=== PATIENT | male | born 1970 | race American Indian/Alaskan Native ===

== ENCOUNTER 2017-08-11 15:14 | Emergency (ER) | payer MEDICAID, OTHER ==
[2017-08-11 15:30] VITALS: BP 108/72
--- NOTE | 2017-08-11 16:22 | EDM.PDOC ---
ED HPI GENERAL MEDICAL PROBLEM - General Chief Complaint: Genitourinary Problem Stated Complaint: LT TESTICLE SWOLLEN Time Seen by Provider: 08/11/17 16:14 Source of Information: Reports: Patient, Family History Limitations: Reports: No Limitations - History of Present Illness INITIAL COMMENTS - FREE TEXT/NARRATIVE: pt arrived with a very swollen left testicle. This started about 4 days ago. he did not have a injury. Onset: Today Duration: Day(s): Location: Reports: Other ( left teticle ) Associated Symptoms: Reports: No Other Symptoms, Other (pt has been very uncomforatable with the swollen testicle) testicle Pain Score (Numeric/FACES): 7 - Related Data Allergies Allergy/AdvReac Type Severity Reaction Status Date / Time No Known Allergies Allergy Verified 08/11/17 15:39 Home Meds: Home Meds Gabapentin [Neurontin] 300 mg PO TID 05/19/14 [History] Insulin Aspart [NovoLOG] 15 units SQ TIDAC 05/19/14 [History] Simvastatin [Zocor] 20 mg PO BEDTIME 05/19/14 [History] metFORMIN HCl [Metformin HCl] 1,000 mg PO BID 05/19/14 [History] Insulin Detemir [Levemir Flextouch] 50 unit SQ BEDTIME 05/20/14 [History] Acetaminophen/HYDROcodone [[place] 325-5 MG] 1 tab PO Q6H PRN 08/11/17 [History] Aspirin [Adult Aspirin] 81 mg PO DAILY 08/11/17 [History] Cetirizine [ZyrTEC] 10 mg PO DAILY 08/11/17 [History] Lisinopril 20 mg PO DAILY 08/11/17 [History] Saxagliptin HCl [Onglyza] 2.5 mg PO DAILY 08/11/17 [History] Sertraline HCl [Zoloft] 100 mg PO BEDTIME 08/11/17 [History] cloNIDine HCl [Catapres] 0.1 mg PO BID 08/11/17 [History] glipiZIDE [Glucotrol XL] 10 mg PO BID 08/11/17 [History] Past Medical History Cardiovascular History: Reports: High Cholesterol, Hypertension Respiratory History: Reports: Pneumonia, Recurrent Neurological History: Reports: Neuropathy, Diabetic Psychiatric History: Reports: Anxiety, Depression Endocrine/Metabolic History: Reports: Diabetes, Type II - Infectious Disease History Infectious Disease History: Reports: Chicken Pox, Shingles Social & Family History - Tobacco Use Smoking Status *Q: Current Every Day Smoker Years of Tobacco use: 30 Packs/Tins Daily: 1 - Caffeine Use Caffeine Use: Reports: Coffee - Recreational Drug Use Recreational Drug Use: No ED ROS GENERAL - Review of Systems Review Of Systems: See Below Constitutional: Reports: No Symptoms HEENT: Reports: No Symptoms Respiratory: Reports: No Symptoms Cardiovascular: Reports: No Symptoms Endocrine: Reports: No Symptoms GI/Abdominal: Reports: Other ( pt is voiding ok. ) : Reports: No Symptoms. Denies: Other ( swollen left testicle.) Musculoskeletal: Reports: No Symptoms Skin: Reports: No Symptoms Neurological: Reports: No Symptoms ED EXAM, GI/ABD - Physical Exam Exam: See Below Text/Narrative:: pt arrived with a swollen left testicle. This is very uncomfortable. He was seen at [facility] last pm and was given a rocephen shot and sent to the Er but he did not come. General Appearance: Alert, Anxious, Moderate Distress Ears: Normal TMs Nose: Normal Inspection Throat/Mouth: Normal Inspection Head: Atraumatic Neck: Normal Inspection Respiratory/Chest: No Respiratory Distress Cardiovascular: Regular Rate, Rhythm GI/Abdominal Exam: Soft, Non-Tender (Male) Exam: Testicular Tenderness (L), Other (pt has a markedly swollen left tesicle. ) Extremities: Normal Inspection Neurological: Alert, Oriented, Normal Cognition Course - Vital Signs Last Recorded V/S: Last Vital Signs Temp 37.4 C 08/11/17 15:38 Pulse 100 08/11/17 15:38 Resp 16 08/11/17 15:38 BP 108/72 08/11/17 15:38 Pulse Ox 95 08/11/17 15:38 - Orders/Labs/Meds Labs: Laboratory Tests 08/11/17 08/11/17 08/11/17 Range/Units 16:14 16:22 16:22 WBC 24.9 H (4.5-11.0) K/uL RBC 4.85 (4.30-5.90) M/uL Hgb 14.2 (12.0-15.0) g/dL Hct 41.7 (40.0-54.0) % MCV 86 (80-98) fL MCH 29 (27-31) pg MCHC 34 (32-36) % Plt Count 330 (150-400) K/uL Add Manual Diff Yes Neutrophils % (Manual) 84 H (36-66) % Band Neutrophils % 1 L (5-11) % Lymphocytes % (Manual) 7 L (24-44) % Monocytes % (Manual) 7 H (2-6) % Eosinophils % (Manual) 1 L (2-4) % Sodium 134 L (140-148) mmol/L Potassium 4.0 (3.6-5.2) mmol/L Chloride 101 (100-108) mmol/L Carbon Dioxide 22 (21-32) mmol/L Anion Gap 15.0 H (5.0-14.0) mmol/L BUN 17 D (7-18) mg/dL Creatinine 1.0 D (0.8-1.3) mg/dL Est Cr Clr Drug Dosing 107.97 mL/min Estimated GFR (MDRD) > 60 (>60) Glucose 172 H (74-106) mg/dL Calcium 8.6 (8.5-10.1) mg/dL Total Bilirubin 0.5 (0.2-1.0) mg/dL AST 22 (15-37) U/L ALT 35 (12-78) U/L Alkaline Phosphatase 112 (46-116) U/L Total Protein 8.2 (6.4-8.2) g/dL Albumin 2.9 L (3.4-5.0) g/dL Globulin 5.3 H (2.3-3.5) g/dL Albumin/Globulin Ratio 0.6 L (1.2-2.2) Urine Color [place] Urine Appearance Slightly cloudy Urine pH 5.0 (4.5-8.0) Ur Specific [place] 1.020 (1.008-1.030) Urine Protein 30 H (NEGATIVE) mg/dL Urine Glucose (UA) 100 H (NEGATIVE) mg/dL Urine Ketones Negative (NEGATIVE) mg/dL Urine Occult Blood Negative (NEGATIVE) Urine Nitrite Negative (NEGAITVE) Urine Bilirubin Small (NEGATIVE) Urine Urobilinogen 4 (NORMAL) mg/dL Ur Leukocyte Esterase Small (NEGATIVE) Urine RBC Not seen (0-5) Urine WBC 10-20 H (0-5) Ur Epithelial Cells Few Amorphous Sediment Not seen Urine Bacteria Few Urine Mucus Moderate Meds: Medications Discontinued Medications Generic Name Dose Route Start Last Admin Trade Name Freq PRN Reason Stop Dose Admin Sodium Chloride 1,000 mls @ 999 mls/hr 08/11/17 18:00 08/11/17 18:39 Normal Saline IV 999 mls/hr ASDIRECTED TONYA Administration Levofloxacin/Dextrose 500 mg/ 100 mls @ 100 mls/hr 08/11/17 18:25 08/11/17 18 :38 Premix IV 08/11/17 19:24 100 mls/hr ONETIME ONE Administration Ketorolac Tromethamine 30 mg 08/11/17 17:47 08/11/17 18:39 Toradol IVPUSH 08/11/17 17:48 30 mg ONETIME ONE Administration - Re-Assessments/Exams Free Text/Narrative Re-Assessment/Exam: 08/14/17 07:05 us was done on the scrotum and he had good circulation to the testicle. There is some edema. Departure - Departure Time of Disposition: 18:27 Disposition: Home, Self-Care 01 Clinical Impression: Orchitis and epididymitis - Discharge Information Instructions: Scrotal Swelling, Epididymitis Referrals: PCP,None [Primary Care Provider] - Forms: ED Department Discharge Care Plan Goals: scrotal support, tub soak, continue hydrocodone levoquin 500mg daily, rtc if not improving.
[2017-08-11] MEDS ORDERED: Ketorolac 30 MG/ML SDV IVPUSH ONE (17:47)
[2017-08-11] MEDS ORDERED: Sodium Chloride 0.9% 1,000 ML IV SCH (18:00)
[2017-08-11] MEDS ORDERED: Levofloxacin/Dextrose 5%-Water 500 MG in Premix Bag 1 BAG IV ONE (18:25)
== END 2017-08-11 20:06 | disposition home or self-care (01) ==
LOC: JP.ED 15:14
DX: N45.3 Epididymo-orchitis (principal); I10 Essential (primary) hypertension; E78.00 Pure hypercholesterolemia, unspecified; E11.40 Type 2 diabetes mellitus with diabetic neuropathy, unspecified; F41.9 Anxiety disorder, unspecified; F32.9 Major depressive disorder, single episode, unspecified; F17.210 Nicotine dependence, cigarettes, uncomplicated; Z79.4 Long term (current) use of insulin; Z79.82 Long term (current) use of aspirin; Z79.899 Other long term (current) drug therapy
CPT/HCPCS: 36415; 76870; 80053; 81001; 85025; 87086; 93976; 96365; 96375; 99284; J1885; J1956; J7030